=== PATIENT | male | born 1945 | race Two or more races ===

== ENCOUNTER 2019-03-26 07:00 | Day surgery (SDC) | payer OTHER ==
[~2019-03-26 07:00] MED LIST: ALTACE2.5 MG PO; ASA81 MG PO; LIPITOR20 MG PO; MULTIPLE VITAM1 EAC2 PO; TAMS0.4C PO; TRIPLE FLEX CA1 EACH PO; [UNRECOGNIZED DRUG - OTHER] PO
== END 2019-03-26 15:15 | disposition home or self-care (01) ==
LOC: CIR.AMB 07:00
DX: C20 Malignant neoplasm of rectum (principal)
CPT/HCPCS: 36561; C1751

== ENCOUNTER 2019-06-12 10:40 | Outpatient (CLI) | payer OTHER | END 2019-06-12 10:41 | disposition home or self-care (01) | LOC: SONOGRAMA 10:40 | DX: E04.1 Nontoxic single thyroid nodule (principal) ==

== ENCOUNTER → 2020-12-10 | Day surgery (SDC) | payer OTHER | END | disposition home or self-care (01) | LOC: ADM 12-03 13:30 → AMB-ENDOS 08:46 | PROVIDERS: ATTEND Colon & Rectal Surgery | DX: C20 Malignant neoplasm of rectum (principal); K64.0 First degree hemorrhoids; Z20.822 Contact with and (suspected) exposure to COVID-19 ==

== ENCOUNTER → 2021-01-11 11:51 | Outpatient (CLI) | payer OTHER ==
[~2021-01-11 11:51] MED LIST changes: +CRESTOR40 MG PO; +DULOXETINE HCL30 MG PO; +LEVOTHYROXINE25 MCG PO; +RESTORIL30 MG PO
== END | disposition home or self-care (01) ==
LOC: RAD 11:51
PROVIDERS: ATTEND Colon & Rectal Surgery
DX: I10 Essential (primary) hypertension (principal); C20 Malignant neoplasm of rectum; D12.8 Benign neoplasm of rectum; Z85.048 Personal history of other malignant neoplasm of rectum, rectosigmoid junction, and anus

== ENCOUNTER 2021-01-20 08:15 | Inpatient (IN) | payer OTHER ==
[~2021-01-20] VITALS: Ht 172.7 cm; Wt 79.4 kg
[~2021-01-20 08:15] MED LIST changes: -CRESTOR40 MG PO; -DULOXETINE HCL30 MG PO; -LEVOTHYROXINE25 MCG PO; -RESTORIL30 MG PO
[2021-01-20] MEDS ORDERED: DULOXETINE HCL30 MG PO (09:32)
[2021-01-20] MEDS ORDERED: RESTORIL30 MG PO (09:34)
[2021-01-20] MEDS ORDERED: CRESTOR40 MG PO (09:34)
[2021-01-20] MEDS ORDERED: TAMS0.4C PO (09:34)
[2021-01-20] MEDS ORDERED: LEVOTHYROXINE25 MCG PO (09:35)
== END 2021-01-31 19:45 | disposition home or self-care (01) | DRG 331 ==
LOC: O/R 01-26 07:48 → SURH 01-26 07:48 → SURG 01-26 07:48 → SURH 01-26 08:15 → O/R 01-27 14:45 → SURH 01-27 15:03 → SURG 01-27 15:28
PROVIDERS: ADMIT Colon & Rectal Surgery; ATTEND Colon & Rectal Surgery
PROC: 0DBP0ZZ Excision of Rectum, Open Approach (ICD-10-PCS; 2021-01-26)
PROC: 0D1N0Z4 Bypass Sigmoid Colon to Cutaneous, Open Approach (ICD-10-PCS; 2021-01-26)
PROC: 07BD0ZX Excision of Aortic Lymphatic, Open Approach, Diagnostic (ICD-10-PCS; 2021-01-26)
PROC: 07BC0ZX Excision of Pelvis Lymphatic, Open Approach, Diagnostic (ICD-10-PCS; 2021-01-26)
PROC: 0DJD8ZZ Inspection of Lower Intestinal Tract, Via Natural or Artificial Opening Endoscopic (ICD-10-PCS; 2021-01-26)
PROC: 3E0F7SF Introduction of Other Gas into Respiratory Tract, Via Natural or Artificial Opening (ICD-10-PCS; 2021-01-26)
PROC: 0DBN0ZZ Excision of Sigmoid Colon, Open Approach (ICD-10-PCS; principal; 2021-01-26 17:00)
DX: C20 Malignant neoplasm of rectum (principal); Z20.822 Contact with and (suspected) exposure to COVID-19

== ENCOUNTER 2021-05-20 06:15 | Day surgery (SDC) | payer OTHER ==
[~2021-05-20 06:15] MED LIST changes: +CRESTOR40 MG PO; +DULOXETINE HCL30 MG PO; +LEVOTHYROXINE25 MCG PO; +RESTORIL30 MG PO
== END 2021-05-20 11:30 | disposition home or self-care (01) ==
LOC: AMB-ENDOS 06:15
PROVIDERS: ATTEND Colon & Rectal Surgery
DX: K62.89 Other specified diseases of anus and rectum (principal); Z20.822 Contact with and (suspected) exposure to COVID-19

== ENCOUNTER 2021-09-29 11:11 | Outpatient (CLI) | payer OTHER | END 2021-09-29 11:14 | disposition home or self-care (01) | LOC: SONOGRAMA 11:11 | PROVIDERS: ATTEND Pathology Anatomic Pathology & Clinical Pathology | DX: E04.2 Nontoxic multinodular goiter (principal) ==

== ENCOUNTER 2021-10-10 08:25 | Outpatient (CLI) | payer OTHER | END 2021-10-10 08:29 | disposition home or self-care (01) | LOC: RX STUDY 08:25 | PROVIDERS: ATTEND Colon & Rectal Surgery | DX: C20 Malignant neoplasm of rectum (principal) ==

== ENCOUNTER 2021-11-23 09:54 | Outpatient (CLI) | payer OTHER | END 2021-11-23 09:59 | disposition home or self-care (01) | LOC: RAD 09:54 | PROVIDERS: ATTEND Colon & Rectal Surgery | DX: Z85.048 Personal history of other malignant neoplasm of rectum, rectosigmoid junction, and anus (principal); C20 Malignant neoplasm of rectum; D12.8 Benign neoplasm of rectum ==

== ENCOUNTER 2021-12-01 11:45 | Inpatient (IN) | payer OTHER ==
[~2021-12-01] VITALS: Ht 172.7 cm; Wt 81.6 kg
[2021-12-01] MEDS ORDERED: GABAPENTIN300 MG (15:00)
[2021-12-07] MEDS ORDERED: MONTELUKAST SOD10 MG (13:45)
[2021-12-07] MEDS ORDERED: FENOFIBRATE160 MG (13:46)
== END 2021-12-09 13:11 | disposition home or self-care (01) | DRG 348 ==
LOC: SURH 12-07 08:50 → O/R 12-07 08:50 → SURH 12-07 09:00
PROVIDERS: ADMIT Colon & Rectal Surgery; ATTEND Colon & Rectal Surgery
PROC: 0DBB4ZZ Excision of Ileum, Percutaneous Endoscopic Approach (ICD-10-PCS; principal; 2021-12-07 09:00)
DX: Z43.2 Encounter for attention to ileostomy (principal); C20 Malignant neoplasm of rectum; C78.7 Secondary malignant neoplasm of liver and intrahepatic bile duct; E03.8 Other specified hypothyroidism; I11.9 Hypertensive heart disease without heart failure; I12.9 Hypertensive chronic kidney disease with stage 1 through stage 4 chronic kidney disease, or unspecified chronic kidney disease; N18.2 Chronic kidney disease, stage 2 (mild)

== ENCOUNTER 2022-04-10 15:46 | Inpatient (IN) | payer OTHER ==
[~2022-04-10] VITALS: Ht 243.8 cm; Wt 5.0 kg
[~2022-04-10 15:46] MED LIST changes: +FENOFIBRATE160 MG; +GABAPENTIN300 MG; +MONTELUKAST SOD10 MG
[2022-04-11] MEDS ORDERED: TAMSULOSIN HCL0.4 MG (08:25)
[2022-04-11] MEDS ORDERED: DULOXETINE HCL30 MG (08:25)
[2022-04-11] MEDS ORDERED: GLIPIZIDE ER2.5 MG (08:25)
[2022-04-11] MEDS ORDERED: LOPERAMIDE2 MG (08:25)
[2022-04-11] MEDS ORDERED: INTEGRA F CAPS1 EAC1 (08:25)
[2022-05-15] MEDS ORDERED: TRAMADOL HCL50 MG PO (13:55)
[2022-05-15] MEDS ORDERED: TAMSULOSIN HCL0.4 MG PO (13:55)
[2022-05-15] MEDS ORDERED: PANTOPRAZOLE SO40 MG PO (13:55)
[2022-05-15] MEDS ORDERED: DULOXETINE HCL30 MG PO (13:55)
[2022-05-15] MEDS ORDERED: ALTACE2.5 MG PO (13:55)
[2022-05-15] MEDS ORDERED: HYOSCYAMINE0.125 M1 SL (13:55)
[2022-05-15] MEDS ORDERED: THIAMINE H100 MG/1 M IV (13:55)
[2022-05-15] MEDS ORDERED: FUSION PLUS CA1 EACH PO (13:55)
[2022-05-15] MEDS ORDERED: ABANEU-SL TABL1 EACH SL (13:55)
[2022-05-15] MEDS ORDERED: BACLOFEN10 MG PO (13:55)
[2022-05-15] MEDS ORDERED: APETIGEN P12.5 MG/15 PO (13:55)
[2022-05-15] MEDS ORDERED: SYNTHROID100 MCG PO (13:55)
== END 2022-05-15 15:41 | disposition home or self-care (01) | DRG 329 ==
LOC: SURG 15:46 → SURH 15:46 → SURG 05-01 14:22
PROVIDERS: ADMIT Colon & Rectal Surgery; ATTEND Colon & Rectal Surgery
PROC: BW2510Z Computerized Tomography (CT Scan) of Chest, Abdomen and Pelvis using Low Osmolar Contrast, Unenhanced and Enhanced (ICD-10-PCS; 2022-04-11)
PROC: 02HV33Z Insertion of Infusion Device into Superior Vena Cava, Percutaneous Approach (ICD-10-PCS; 2022-04-12)
PROC: B24BYZZ Ultrasonography of Heart with Aorta using Other Contrast (ICD-10-PCS; 2022-04-13)
PROC: 30243N1 Transfusion of Nonautologous Red Blood Cells into Central Vein, Percutaneous Approach (ICD-10-PCS; 2022-04-15)
PROC: BW28ZZZ Computerized Tomography (CT Scan) of Head (ICD-10-PCS; 2022-04-19)
PROC: 06H03DZ Insertion of Intraluminal Device into Inferior Vena Cava, Percutaneous Approach (ICD-10-PCS; 2022-04-25)
PROC: 0D1L0Z4 Bypass Transverse Colon to Cutaneous, Open Approach (ICD-10-PCS; principal; 2022-04-28 16:15)
PROC: BW24ZZZ Computerized Tomography (CT Scan) of Chest and Abdomen (ICD-10-PCS; 2022-05-03)
PROC: BW2510Z Computerized Tomography (CT Scan) of Chest, Abdomen and Pelvis using Low Osmolar Contrast, Unenhanced and Enhanced (ICD-10-PCS; 2022-05-04)
PROC: 02PA03Z Removal of Infusion Device from Heart, Open Approach (ICD-10-PCS; 2022-05-09)
PROC: 0JPT0WZ Removal of Totally Implantable Vascular Access Device from Trunk Subcutaneous Tissue and Fascia, Open Approach (ICD-10-PCS; 2022-05-09)
DX: K62.7 Radiation proctitis (principal); G92.8 Other toxic encephalopathy; J81.0 Acute pulmonary edema; I82.4Y3 Acute embolism and thrombosis of unspecified deep veins of proximal lower extremity, bilateral; K61.1 Rectal abscess; E46 Unspecified protein-calorie malnutrition; C20 Malignant neoplasm of rectum; C78.7 Secondary malignant neoplasm of liver and intrahepatic bile duct; B37.89 Other sites of candidiasis; D50.0 Iron deficiency anemia secondary to blood loss (chronic); D63.0 Anemia in neoplastic disease; B96.20 Unspecified Escherichia coli [E. coli] as the cause of diseases classified elsewhere; F43.20 Adjustment disorder, unspecified; I11.9 Hypertensive heart disease without heart failure; E89.0 Postprocedural hypothyroidism; R73.03 Prediabetes

== ENCOUNTER 2022-05-17 13:03 | Emergency (ER) | payer OTHER ==
[~2022-05-17] VITALS: Ht 175.3 cm; Wt 70.3 kg
[~2022-05-17 13:03] MED LIST changes: +ABANEU-SL TABL1 EACH SL; +APETIGEN P12.5 MG/15 PO; +BACLOFEN10 MG PO; +DULOXETINE HCL30 MG; +FUSION PLUS CA1 EACH PO; +GLIPIZIDE ER2.5 MG; +HYOSCYAMINE0.125 M1 SL; +INTEGRA F CAPS1 EAC1; +LOPERAMIDE2 MG; +PANTOPRAZOLE SO40 MG PO; +SYNTHROID100 MCG PO; +TAMSULOSIN HCL0.4 MG; +TAMSULOSIN HCL0.4 MG PO; +THIAMINE H100 MG/1 M IV; +TRAMADOL HCL50 MG PO
== END 2022-05-17 21:12 | disposition home or self-care (01) ==
LOC: ER 13:03
DX: R60.1 Generalized edema (principal); C20 Malignant neoplasm of rectum; C78.7 Secondary malignant neoplasm of liver and intrahepatic bile duct; Z87.19 Personal history of other diseases of the digestive system; Z98.890 Other specified postprocedural states